=== PATIENT | male | born 1950 | race Asian ===

== ENCOUNTER → 2016-11-01 | Outpatient (CLI) | payer MEDICARE | END | disposition home or self-care (01) | LOC: CFH 13:42 | PROVIDERS: ATTEND Nurse Practitioner Family | DX: E04.2 Nontoxic multinodular goiter (principal) | CPT/HCPCS: 76536 ==

== ENCOUNTER → 2018-02-14 | Outpatient (CLI) | payer MEDICARE | END | disposition home or self-care (01) | LOC: RAD 07:44 | PROVIDERS: ATTEND Internal Medicine Gastroenterology | DX: Z12.89 Encounter for screening for malignant neoplasm of other sites (principal); K82.4 Cholesterolosis of gallbladder | CPT/HCPCS: 76705 ==

== ENCOUNTER 2018-02-21 15:33 | Emergency (ER) | payer MEDICARE ==
[~2018-02-21] VITALS: Ht 172.7 cm; Wt 66.6 kg
[2018-02-21 16:53] LABS: BASOPHILS # (AUTO) 0.01 x10^3/uL (0-0.1); BASOPHILS % (AUTO) 0 % (0-1); EOSINOPHILS % (AUTO) 0 % (1-7); LYMPHOCYTES # (AUTO) 0.73 x10^3/uL (1-3.4); LYMPHOCYTES % (AUTO) 14 % (22-44); MD NO; MEAN CORPUSCULAR HEMOGLOBIN 30.7 pg (27.5-34.5); MEAN CORPUSCULAR HGB CONC 33.8 g/dL (33.2-36.2); MEAN CORPUSCULAR VOLUME 90.7 fL (81-97); MONOCYTES # (AUTO) 0.47 x10^3/uL (0.2-0.8); MONOCYTES % (AUTO) 9 % (2-9); NEUTROPHILS # (AUTO) 4.08 x10^3/uL (1.8-6.8); NEUTROPHILS % (AUTO) 77 % (42-75); PLATELET COUNT 200 x10^3/uL (130-400); RED BLOOD COUNT 5.13 x10^6/uL (4.38-5.82); RED CELL DISTRIBUTION WIDTH 13.8 % (9.4-14.8)
[2018-02-21] MEDS ORDERED: ONDANSETRON 2MG/ML, 2ML ONE (16:55)
[2018-02-21] MEDS ORDERED: IBUPROFEN 200 MG TABLET ONE (16:56)
[2018-02-21] MEDS ORDERED: ONDANSETRON 2MG/ML, 2ML IVPush ONE (17:00)
[2018-02-21] MEDS ORDERED: SODIUM CHLORIDE 0.9% 1,000ML IVBOLUS ONE (17:00)
[2018-02-21] MEDS ORDERED: IBUPROFEN 200 MG TABLET PO ONE (17:00)
[2018-02-21 17:06] LABS: ALANINE AMINOTRANSFERASE 38 U/L (12-78); ALBUMIN 3.2 g/dL (3.4-5.0); ANION GAP 13 mmol/L (5-15); CALCIUM 8.3 mg/dL (8.5-10.1); CHLORIDE 99 mmol/L (98-107); CREATININE 1.09 mg/dL (0.7-1.3)
[2018-02-21 17:08] LABS: ALKALINE PHOSPHATASE 66 U/L (45-117); BILIRUBIN,TOTAL 0.7 mg/dL (0.2-1.0); TOTAL PROTEIN 7.9 g/dL (6.4-8.2)
[2018-02-21 17:35] LABS: PH, VENOUS 7.384 pH (7.320-7.420)
[2018-02-21 17:59] LABS: CULTURE INDICATED? NO; MICROSCOPIC NOT IND
[2018-02-21 18:10] LABS: ACETONE, SERUM Small (20mg/dL) mg/dL (Negative)
[2018-02-21 18:52] VITALS: BP 121/71
[2018-02-21 19:13] LABS: RAPID INFLUENZA A Negative (Negative); RAPID INFLUENZA B Negative (Negative)
== END 2018-02-21 20:05 | disposition home or self-care (01) ==
LOC: ED 18:32
DX: R50.9 Fever, unspecified (principal); I10 Essential (primary) hypertension; E11.9 Type 2 diabetes mellitus without complications; E78.00 Pure hypercholesterolemia, unspecified
CPT/HCPCS: 36415; 80053; 81003; 82010; 82803; 83690; 85025; 87400; 93005; 96374; 99285; J2405; J7030

== ENCOUNTER → 2018-05-27 | Outpatient (CLI) | payer MEDICARE | END | disposition home or self-care (01) | LOC: CFH 07:41 | DX: Z12.2 Encounter for screening for malignant neoplasm of respiratory organs (principal); Z87.891 Personal history of nicotine dependence | CPT/HCPCS: 76706; G0297 ==

== ENCOUNTER 2018-12-04 14:34 | Outpatient (CLI) | payer MEDICARE | END 2018-12-04 23:59 | disposition home or self-care (01) | LOC: STAR 14:34 | PROVIDERS: ATTEND Surgery | DX: Z01.818 Encounter for other preprocedural examination (principal); K40.90 Unilateral inguinal hernia, without obstruction or gangrene, not specified as recurrent; R94.31 Abnormal electrocardiogram [ECG] [EKG] | CPT/HCPCS: 36415; 80053; 93005 ==

== ENCOUNTER → 2019-07-01 | Outpatient (CLI) | payer MEDICARE ==
[~2019-07-01] MED LIST: AMLO-150 PO; ATOR10TA PO; CHOL2000 PO; DAPA10TA PO; ENAL10TA PO; GLIP10TA13 PO; METF10007 PO; MULT1TAB60 PO; SAXA5TAB PO; VITA1CAP PO
== END | disposition home or self-care (01) ==
LOC: CFH 07:50
PROVIDERS: ATTEND Internal Medicine Gastroenterology
DX: K82.4 Cholesterolosis of gallbladder (principal); N28.1 Cyst of kidney, acquired; D12.0 Benign neoplasm of cecum; D12.6 Benign neoplasm of colon, unspecified; B19.10 Unspecified viral hepatitis B without hepatic coma; E11.9 Type 2 diabetes mellitus without complications; I10 Essential (primary) hypertension; Z87.891 Personal history of nicotine dependence
CPT/HCPCS: 76700

== ENCOUNTER → 2020-01-03 | Outpatient (CLI) | payer MEDICARE ==
[~2020-01-03] MED LIST changes: -ENAL10TA PO; +ENAL10TA9 PO; +MULT-449 PO; -MULT1TAB60 PO
== END | disposition home or self-care (01) ==
LOC: CFH 07:08
PROVIDERS: ATTEND Nurse Practitioner Family
DX: N28.1 Cyst of kidney, acquired (principal); K82.4 Cholesterolosis of gallbladder; D12.0 Benign neoplasm of cecum; D12.5 Benign neoplasm of sigmoid colon; Z86.010 Personal history of colon polyps
CPT/HCPCS: 76700